=== PATIENT | female | born 1975 | race American Indian/Alaskan Native ===

== ENCOUNTER 2019-01-04 21:10 | Emergency (ER) | payer OTHER ==
[~2019-01-04] VITALS: Ht 165.1 cm; Wt 74.8 kg
== END 2019-01-04 21:55 | disposition home or self-care (01) ==
LOC: ED 21:10
PROC: 2W3CX1Z Immobilization of Right Lower Arm using Splint (ICD-10-PCS; principal; 2019-01-04)
DX: S60.211A Contusion of right wrist, initial encounter (principal); F17.200 Nicotine dependence, unspecified, uncomplicated; W23.0XXA Caught, crushed, jammed, or pinched between moving objects, initial encounter
CPT/HCPCS: 29125; 73110; 99283-25

== ENCOUNTER 2019-09-28 22:05 | Emergency (ER) | payer OTHER ==
[~2019-09-28] VITALS: Ht 165.1 cm; Wt 74.8 kg
[2019-09-28] MEDS ORDERED: IBU600 MG PO (23:03)
== END 2019-09-28 23:34 | disposition home or self-care (01) ==
LOC: ED 22:05
PROC: 2W3DX1Z Immobilization of Left Lower Arm using Splint (ICD-10-PCS; principal; 2019-09-28)
DX: S62.617A Displaced fracture of proximal phalanx of left little finger, initial encounter for closed fracture (principal); F17.200 Nicotine dependence, unspecified, uncomplicated; V19.9XXA Pedal cyclist (driver) (passenger) injured in unspecified traffic accident, initial encounter; Z23 Encounter for immunization
CPT/HCPCS: 29125; 73130; 90471; 90715; 99283-25; A9270

== ENCOUNTER 2021-07-11 18:25 | Emergency (ER) | payer OTHER ==
[~2021-07-11] VITALS: Ht 165.1 cm; Wt 74.8 kg
[~2021-07-11 18:25] MED LIST: IBU600 MG PO
--- OUTSIDE RECORDS SUMMARY | 2021-07-11 18:32 | XMS ---
PreManage Notification: PATTY SCOTT Security Restaurant Inspector Events No recent Security Events currently on file CRITERIA MET - ED - Positive COVID-19 Lab Result - [facility] PROVID[facility] There are no care providers on record at this time. Shukri has no Care Guidelines for this patient. Jean Marie VISIT COUNT (12 MO.) 1 KEYLA Mitchell TOTAL 1 NOTE: Visits indicate total known visits. ED/C VISIT TRACKING (12 MO.) 07/11/2021 18:26 KEYLA Blackwell [place] TYPE: Emergency COMPLAINT: - ASSULATED INPATIENT VISIT TRACKING (12 MO.) No inpatient visits to display in this time frame [id number]
== END 2021-07-11 23:29 | disposition home or self-care (01) ==
LOC: ED 18:25
DX: S62.521A Displaced fracture of distal phalanx of right thumb, initial encounter for closed fracture (principal); S01.81XA Laceration without foreign body of other part of head, initial encounter; S16.1XXA Strain of muscle, fascia and tendon at neck level, initial encounter; S50.11XA Contusion of right forearm, initial encounter; Y04.8XXA Assault by other bodily force, initial encounter; Z86.73 Personal history of transient ischemic attack (TIA), and cerebral infarction without residual deficits; F17.200 Nicotine dependence, unspecified, uncomplicated
CPT/HCPCS: 12013; 29125; 70450; 72125; 73090; 73140; 90471; 90715; 99284-25

== ENCOUNTER 2023-12-23 09:22 | Day surgery (SDC) | payer OTHER ==
--- NOTE | 2023-12-20 10:44 | NUR ---
PHONE CALL TO SON NUMBER LISTED [phone] NO LONGER IN SERVICE. CALL DR SHAW OFFICE AND RECEIVED NUMBER [phone] AND UNABLE TO LEAVE MESSAGE DUE TO VOICE MAIL NOT SET-UP. THEN CALLED [phone] WHICH IS LISTED A DAUGHTERS NUMBER ON FACE SHEET, BUT IT IS ALSO NOT A CORRECT NUMBER. A MALE ANSWERED AND HE DOES NOT KNOW THIS PATIENT OR ANY FAMILY MENBERS.
--- NOTE | 2023-12-20 11:03 | NUR ---
SENT TEXT MESSAGE TO THE FOLLOWING NUMBERS ALSO [phone] AND [phone]. ASKING THEM TO CALL TO UPDATE HEALTH HISTORY IN MEDICAL RECORDERS BEFORE SURGERY. AT THIS TIME HAVE NOT RECEIVED A RESPONSE.
--- NOTE | 2023-12-21 09:14 | NUR ---
PHONE CALL TO PT ON THE FOLLOWING NUMBERS: [phone] (NO VAOICE MAIL SET UP), LEFT MESSAGE X2 IS MORNING . NO ANSWER LEFT MESSAGES AND SENT A TEXT AGAIN THIS MORNING. TRYED EACH NUMBER TWICE THIS MORNING. AND STILL NO ANSWER.
--- NOTE | 2023-12-21 11:33 | NUR ---
phone call to [phone] no voice mail set-up on this phone and called [phone] left message at this time. to call back to complete phone pre-admit
--- NOTE | 2023-12-21 12:45 | NUR ---
phone call to the two numbers that entry writer has been using. no answer at this time. [phone] and [phone].
--- NOTE | 2023-12-21 12:55 | NUR ---
play writer reached out to [facility] to see if they could reach patient. they are going to send out a community health worker to the home and explain that she need to call me. They also will communicate what time the pt needs to be at the [id number] on 12-23-23 , but if they cant get ahold of her they will call pts mother also.
--- NOTE | 2023-12-21 16:21 | NUR ---
TRY TO REACH PATIENT AGAIN AT THIS TIME, CALLED BOTH NUMBERS AND NO ANSWER. AND PT HAS NOT RETURNED A CALL OF THIS TIME.
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
[~2023-12-23] VITALS: Ht 165.1 cm; Wt 75.0 kg
[~2023-12-23 09:22] MED LIST changes: +CEFAZOLIN SODIUM 2 GM/20 ML SYR IV SCH; +CEFPROZIL500 MG PO; +IBLOOD GLUCOSE TEST STRIP 1 EA TEST VI PRN; +LACTATED RINGER'S 1,000 ML IV SCH; +LIDOCAINE HCL 1% 5 ML SDV INJ ONE; +OXYCODONE HCL5 MG PO; +TRANEXAMIC ACID 2,000 MG in SODIUM CHLORIDE 0.9% 100 ML IV SCH
[2023-12-23 09:51] VITALS: BP 155/95
[2023-12-23] MEDS ORDERED: ADVIL200 M1 PO (09:55)
--- NOTE | 2023-12-23 10:10 | NUR ---
0950 VERBAL ORDER TAKEN FROM CHERYL MOORE TO BOLUS FLUIDS FOR PATIENT TO BE ABLE TO TAKE A URINE TEST BEFORE PROCEDURE.
[2023-12-23] MEDS ORDERED: HYDROCODONE/ACETA 7.5/325 TAB PO PRN (10:15)
[2023-12-23] MEDS ORDERED: NALOXONE HCL 0.4 MG SYR IV PRN ×2 (10:15→11:00)
[2023-12-23] MEDS ORDERED: DEXAMETHASONE SOD PHOS 4 MG/ML VIAL ONE (10:23)
[2023-12-23] MEDS ORDERED: LIDOCAINE HCL 2% 5 ML SDV ONE (10:23)
[2023-12-23] MEDS ORDERED: MIDAZOLAM HCL 2 MG/2 ML VIAL ONE (10:23)
[2023-12-23] MEDS ORDERED: dexmedeTOMIDine HCl 200 MCG/2 ML VIAL ONE (10:23)
[2023-12-23] MEDS ORDERED: Ropivacaine HCl 0.5% 30 ML VIAL ONE (10:23)
[2023-12-23] MEDS ORDERED: SODIUM CHLORIDE 0.9% 20 ML IV ONE (10:23)
[2023-12-23] MEDS ORDERED: propofoL 200 MG/20 ML VIAL ONE (10:44)
[2023-12-23] MEDS ORDERED: KETOROLAC TROMETHAMINE 30 MG/ML VIAL ONE (10:44)
[2023-12-23] MEDS ORDERED: ondansetron HCL 4 MG/2 ML VIAL ONE (10:44)
[2023-12-23] MEDS ORDERED: fentaNYL citrate 50 MCG/ML SDV IV PRN (11:00)
[2023-12-23] MEDS ORDERED: IBLOOD GLUCOSE TEST STRIP 1 EA TEST VI PRN (11:00)
[2023-12-23] MEDS ORDERED: ondansetron HCL 4 MG/2 ML VIAL IV PRN (11:00)
[2023-12-23 11:06] LABS: AMPHETAMINES, URINE POSITIVE (NEGATIVE); BARBITURATES, URINE NEGATIVE (NEGATIVE); BENZODIAZEPINE, URINE NEGATIVE (NEGATIVE); BUPRENORPHINE, URINE NEGATIVE (NEGATIVE); CANNABINOID, URINE NEGATIVE (NEGATIVE); COCAINE, URINE NEGATIVE (NEGATIVE); ECSTASY, URINE NEGATIVE (NEGATIVE); FENTANYL, URINE NEGATIVE (NEGATIVE); METHADONE, URINE NEGATIVE (NEGATIVE); OPIATES, URINE NEGATIVE (NEGATIVE); OXYCODONE, URINE NEGATIVE (NEGATIVE); PHENCYCLIDINE, URINE NEGATIVE (NEGATIVE)
[2023-12-23] MEDS ORDERED: HYDROCODON-ACE1 EA11 PO (12:21)
--- NOTE | 2023-12-23 12:21 | NUR ---
12/23/23 1221 Saida Weber 1211- PT ARRIVES TO PACU, SEMI WALTERS POSITION. OPA IN PLACE, MAINTAINING OWN AIRWAY WITH JUST OPA, BREATHING EVEN AND NON LABORED, O2 AT 6L PER MASK. LR INFUSING TO LFA IV. SPLINT IN PLACE TO RIGHT WRIST, CAP REFILL NORMAL. ICE PLACED TO SURGICAL SITE. ABD SOFT, NON DISTENDED. ALL MONITORS IN PLACE. PT NON REACTIVE TO STIMULUS AT THIS TIME.
[2023-12-23 12:50] VITALS: BP 150/91
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
--- NOTE | 2023-12-23 13:59 | NUR ---
1355 PT USED CALL LIGHT TO ALERT NURSE PT NEEDED TO URINATE. PT ABLE TO WALK TO BATHROOM AND VOID 400 MLS URINE. HOURLY ROUNDING DONE.
--- NOTE | 2023-12-23 14:00 | NUR ---
1400 PT REPORTS 4/10 TOLERABLE PAIN, NO NAUSEA. PT HAS CALL LIGHT WITHIN REACH.
--- NOTE | 2023-12-23 14:24 | NUR ---
1415 WENT OVER DISCHARGE INFORAMTION WITH PT AND MOM. PT HAS NO QUESTIONS AT THIS TIME. OPERATIVE ARM IN SLING. PT REPORTS 4/10 TOLERABLE PAIN. PT REPORTS NO NASUEA. PT HAS BEEN ABLE TO TOLERATE PO FLUIDS AND SNACKS AND VOID 400 MLS. PT DRESSED ON OWN. 1419 IV DISCONTINUED 1420 PT DISCHARGED FROM DAY [facility] VIA WHEELCHAIR TO FRONT OF HOSPITAL TO [facility] CAR.
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
== END 2023-12-23 14:20 | disposition home or self-care (01) ==
LOC: DS 09:22
PROVIDERS: Nurse Anesthetist, Certified Registered; ATTEND Specialist
PROC: 0PSH04Z Reposition Right Radius with Internal Fixation Device, Open Approach (ICD-10-PCS; principal; 2023-12-23 11:00)
PROC: 0PSK04Z Reposition Right Ulna with Internal Fixation Device, Open Approach (ICD-10-PCS; 2023-12-23 11:00)
DX: S52.371A Galeazzi's fracture of right radius, initial encounter for closed fracture (principal); X58.XXXA Exposure to other specified factors, initial encounter
CPT/HCPCS: 73100; 80307; J0690; J1100; J1885; J2001; J2250; J2405; J2704; J2795